=== PATIENT | male | born 1985 | race Caucasian/White ===

== ENCOUNTER 2023-06-30 17:59 | Emergency (ER) | payer OTHER, SELFPAY ==
[2023-06-30] VITALS (9 sets, daily range): BP systolic 114–136; BP diastolic 76–99; PULSE 61–71; RESP 18; TEMP 36.8; O2SAT 94–97; BMI 31.8
--- NOTE | 2023-06-30 18:19 | ED_ITS ---
HPI - General Adult General Time Seen by Provider: 18:19 Date Seen: 06/30/23 Chief complaint: Chest Pain Stated complaint: tingling left arm, chest pain, pain through neck Time Seen by Provider: 06/30/23 18:18 Source: patient and RN notes reviewed Mode of arrival: ambulatory Limitations: no limitations History of Present Illness HPI narrative: This 37-year-old male is coming in with left chest pain, pain radiating into his left arm and left back of his neck after sneezing today. He had a forceful sneeze earlier this afternoon and the symptoms developed. He does note that there is a pleuritic component with left chest symptoms. He had a cold last weekend, is at the tail end of it. He states his children were more ill. The daycare provider tested positive for strep, he is not aware of anyone else testing for anything else. His family did not test for anything. His kids ran some fevers, he never did. He has no prior cardiac or respiratory issues. He states he maybe feels a little short of breath with this. No numbness tingling in his arm, is able to use his arm. Also feels a stiffness in the left back of his neck. No headache. He has had no fevers or chills throughout this illness. He did try Tylenol about 4:00 p.m.. Related Data Home Medications Medication Instructions Recorded Confirmed No Known Home Medications 06/30/23 06/30/23 Allergies Allergy/AdvReac Type Severity Reaction Status Date / Time No Known Drug Allergies Allergy Verified 06/30/23 18:15 Review of Systems Status of ROS: Reports: 6 or more systems reviewed and unremarkable except as noted in History and below [facility] Social History Smoking Status: Never smoker Do you use any of these nicotine containing products: None Second hand tobacco smoke exposure: No How often do you have a drink containing alcohol: monthly or less How many standard drinks containing alcohol do you have on a typical day: 1 or 2 How often do you have six or more drinks on one occasion: Never AUDIT-C Alcohol total score: 1 Non-prescribed substance use: denies use service: No Exam Const: Vital Signs, click to edit/add: Vital Signs - 24 hr 06/30/23 18:12 06/30/23 18:30 06/30/23 18:31 Temperature 98.3 F Pulse Rate 69 66 Pulse Rate [Pulse Oximeter] 71 Respiratory Rate 18 Blood Pressure 131/99 H Blood Pressure [Ri ght Upper Arm] 136/94 H Pulse Oximetry 97 96 94 Oxygen Delivery Me thod Room Air 06/30/23 18:32 06/30/23 18:55 06/30/23 19:00 Temperature Pulse Rate 67 69 Pulse Rate [Pulse Oximeter] Respiratory Rate Blood Pressure 118/86 Blood Pressure [Ri ght Upper Arm] Pulse Oximetry 94 96 94 Oxygen Delivery Me thod A 37-year-old male that is very healthy appearing is resting in the bed, alert, interactive, no apparent distress. Able speak in complete sentences. Pupils are equal round, sclera clear, conjugate gaze. Symmetrical facial function. Neck supple, no adenopathy. Lungs are clear, good air entry, no wheeze or crackles. CV regular rate and rhythm, no murmur, normal S1-S2, no S3-S4. No reproducible chest wall pain. Abdomen is soft, no rebound or guarding, no organomegaly, nontender. He has 5/5 symmetrical strength. I can mobilize his left upper extremity, I cannot reproduce his pain, he states it really just feels deeper like an ache. Range of motion through the shoulder does maybe may can feel little more discomfort in his left chest wall. Documenting provider has reviewed patient's vital signs: yes Course Course ED Course: Reviewed with him that his EKG looks reassuring. Will have him on cardiac monitoring and pulse oximetry. Will get full complement of labs. He may be correct that this certainly could be muscular in nature. Will rule out such entities as pneumothorax, underlying cardiac complications including myocarditis, ischemic disease. His EKG is not showing any evidence of active ischemia or STEMI. Will get a troponin. Will also get a D-dimer considering other vascular entities. He currently is hemodynamically stable. Reevaluation(s) Time of Reevaluation #1: 19:38 Reevaluation #1: Ryan is had no arrhythmia, no hypoxia. Reviewed his chest x-ray showing no acute pathology, certainly no pneumothorax. His white blood count is normal, D- dimer is normal, comprehensive metabolic panel normal, lactate is normal. C- reactive protein just mildly up at 1.4 but he recently had a cold, triple viral swab is negative. His sneezing happened around 2:00 p.m.. His point of care troponin was normal at about 6:30 p.m., well after 3 hours of the onset of his symptoms. Thus, single troponin should be sufficient. He does note that he had a little mild headache before coming in but did not have a headache when he got here. His neck pain has resolved, left arm is feeling better. Still has some mild pleuritic type chest symptoms. Did discuss with him the possibility dissection, did discuss CTA. If it is doubtful that this is has any suggestion of pulmonary embolus with normal D-dimer, no hypoxia. He is also not tachycardic. Patient declined any neuro imaging with CTA to rule out dissection. I certainly do support that this very well may be musculoskeletal but do advise him that if he has increasing neck pain or headache, he needs to reconsider the neuro imaging. At this time, we did review trying a dose of IV Toradol 15 mg to see if it helps with the symptoms. Likely to discharge to home for further outpatient monitoring after the Toradol. Vital Signs Vital signs: Initial Vital Signs Temperature 98.3 F 06/30/23 18:12 Temperature Source Temporal Artery Scan 06/30/23 18:12 Pulse Rate 71 06/30/23 18:12 Pulse Rhythm Regular 06/30/23 18:12 Pulse Strength 3+ Normal 06/30/23 18:12 Respiratory Rate 18 06/30/23 18:12 Blood Pressure 136/94 H 06/30/23 18:12 Blood Pressure Mean 108 H 06/30/23 18:12 Blood Pressure Position Sitting 06/30/23 18:12 Pulse Oximetry 97 06/30/23 18:12 Oxygen Delivery Method Room Air 06/30/23 18:12 Vital Signs Temperature 98.3 F 06/30/23 18:12 Pulse Rate 71 06/30/23 18:12 Respiratory Rate 18 06/30/23 18:12 Blood Pressure 136/94 H 06/30/23 18:12 Pulse Oximetry 97 06/30/23 18:12 Oxygen Delivery Method Room Air 06/30/23 18:12 Temperature 98.3 F 06/30/23 18:12 Pulse Rate 69 06/30/23 19:00 Respiratory Rate 18 06/30/23 18:12 Blood Pressure 118/86 06/30/23 18:32 Pulse Oximetry 94 06/30/23 19:00 Oxygen Delivery Method Room Air 06/30/23 18:12 Medical Decision Making Lab Data Lab results reviewed: Yes I reviewed the patient's lab results Labs: Lab Results 06/30/23 06/30/23 Range/Units 18:28 18:42 WBC 5.60 (4.50-11.00) K/uL RBC 4.61 (4.30-5.90) m/uL Hgb 13.3 L (13.5-17.5) gm/dL Hct 40.6 (37.0-53.0) % MCV 88 (80-100) fL MCH 29 (26-34) pg MCHC 33 (32-36) gm/dL RDW Coeff of Smita 12.1 (11.5-15.5) % Plt Count 172 (140-440) K/uL Neut % (Auto) 60.6 (42.0-72.0) % Lymph % (Auto) 29.1 (20-44) % Butts % (Auto) 7.1 (0.0-11.0) % Eos % (Auto) 2.5 (0.0-7.0) % Baso % (Auto) 0.5 (0.0-3.0) % Neut # (Auto) 3.39 (1.7-7.0) K/uL Lymph # (Auto) 1.63 (0.90-2.90) K/uL Butts # (Auto) 0.40 (0.00-0.90) K/UL Eos # (Auto) 0.14 (0.00-0.50) K/uL Baso # (Auto) 0.03 (0.00-0.30) K/uL Abs Immat Gran (auto) 0.01 (0.00-0.30) K/uL Imm/Tot Granulo (auto) 0.2 % Diff Slide Review Acceptable Review (Acceptable) D-Dimer Quant (PE/DVT) 0.35 (0.00-0.50) ug/ml Sodium 141 (135-149) mmol/L Potassium 4.0 (3.6-5.1) mmol/L Chloride 108 (96-114) mmol/L Carbon Dioxide 26 (20-32) mmol/L Anion Gap 7 (7-15) mEq/L BUN 14 (5-24) mg/dL Creatinine 0.9 (0.5-1.5) mg/dL Estimated Creat Clear 119.69 Estimated GFR 113 ml/min Glucose 104 (60-115) mg/dL Calcium 8.8 (8.4-10.6) mg/dL Total Bilirubin 0.4 (0.1-1.5) mg/dL AST 30 (12-35) U/L ALT 28 (4-50) U/L Alkaline Phosphatase 99 (40-150) U/L C-Reactive Protein 1.4 H (0.5-1.0) mg/dL NT-Pro-B Natriuret Pep 50 pg/mL Total Protein 7.3 (6.0-8.3) g/dL Albumin 4.0 (3.3-5.0) g/dL SARS-CoV-2 (PCR) Negative SARS-CoV-2 (Negative) Influenza Type A (PCR) Negative PCR FLU A (Negative) Influenza Type B (PCR) Negative PCR FLU B (Negative) RSV (PCR) Negative PCR RSV (Negative) POC Troponin I 0.01 (0.01-0.04) ng/ml Imaging Data Chest x-ray: Attestation: I have reviewed the pertinent imaging results. Radiologist's impression: Patient: RYAN MARC Facility:?[facility] Patient ID:?[id number] Site Patient ID:?[id number]. Site :?[id number] Study:?XRay-Chest PCXR-06/30/2023 6:45:27 PM Ordering Physician:PRAVIN Final Report: INDICATION: Left chest pain after sneezing. TECHNIQUE: Chest 1 view. COMPARISON: None. FINDINGS: Mild elevation of the left hemidiaphragm with slight linear atelectasis in the left lung base. No focal consolidation, pleural effusion, or pneumothorax. Normal heart size and pulmonary vascularity. The bones are unremarkable. IMPRESSION: No acute cardiopulmonary findings. Dictated by Cristy Valadez MD @ 06/30/2023 6:56:27 PM (Electronic Signature) ECG Data Attestation: I personally reviewed and interpreted this ECG as follows: (Normal sinus rhythm, 76 beats per minute. QT corrected 418 milliseconds. No ischemia, no infarct.) Prior ECG tracings: not available for review Critical Care Time Critical Care Time Critical Care Time: No Discharge Plan Discharge Clinical Impression: Atypical chest pain Patient Disposition: Home, Self-Care Condition: Stable Instructions: Noncardiac Chest Pain (ED) Additional Instructions: Certainly can use Tylenol and ibuprofen as needed for pain management, follow bottle directions for dosing. Your EKG and troponin do rule out acute myoc ardial infarction, no evidence of any pneumothorax on your chest imaging. Continue to monitor your symptoms. If you do develop fever, increasing cough, worsening shortness of breath, increasing pain despite Tylenol and ibuprofen, have further concerns, do recommend re-evaluation. Activity Level: Activity as Tolerated Prescriptions: No Action No Known Home Medications Follow Up/Referrals: Alejandro Luna MD [Staff Physician] - Stand Alone Forms: [employer] Instructions
--- NOTE | 2023-06-30 18:27 | XR_ITS ---
Patient: RYAN MARC Facility:?[facility] Patient ID:?[id number] Site Patient ID:?[id number]. Site :?1985 Study:?XRay-Chest PCXR-06/30/2023 6:45:27 PM Ordering Physician:PRAVIN Final Report: INDICATION: Left chest pain after sneezing. TECHNIQUE: Chest 1 view. COMPARISON: None. FINDINGS: Mild elevation of the left hemidiaphragm with slight linear atelectasis in the left lung base. No focal consolidation, pleural effusion, or pneumothorax. Normal heart size and pulmonary vascularity. The bones are unremarkable. IMPRESSION: No acute cardiopulmonary findings. Dictated by Cristy Valadez MD @ 06/30/2023 6:56:27 PM Signed by:?Cristy Valadez MD @06/30/2023 6:56:27 PM (Electronic Signature)
[2023-06-30 18:57] LABS: Basophils Absolute Auto 0.03 K/uL (0.00-0.30); Basophils Percent Auto 0.5 % (0.0-3.0); Eosinophils Absolute Auto 0.14 K/uL (0.00-0.50); Eosinophils Percent Auto 2.5 % (0.0-7.0); Hematocrit 40.6 % (37.0-53.0); Hemoglobin* 13.3 gm/dL (13.5-17.5); Immature Granulocytes Abs Auto 0.01 K/uL (0.00-0.30); Immature Granulocytes Pct Auto 0.2 %; Lymphocytes Absolute Auto 1.63 K/uL (0.90-2.90); Lymphocytes Percent Auto 29.1 % (20-44); Mean Corpuscular HGB Conc 33 gm/dL (32-36); Mean Corpuscular Hemoglobin 29 pg (26-34); Mean Corpuscular Volume 88 fL (80-100); Monocytes Percent Auto 7.1 % (0.0-11.0); Neutrophils Absolute Auto 3.39 K/uL (1.7-7.0); Neutrophils Percent Auto 60.6 % (42.0-72.0); Platelet Count* 172 K/uL (140-440); RDW Coefficient of Variation % 12.1 % (11.5-15.5); Red Blood Count 4.61 m/uL (4.30-5.90)
[2023-06-30 19:05] LABS: Troponin, Point-of-Care* 0.01 ng/ml (0.01-0.04)
[2023-06-30 19:12] LABS: Chloride* 108 mmol/L (96-114); Sodium* 141 mmol/L (135-149)
[2023-06-30 19:16] LABS: Alanine Aminotransferase* 28 U/L (4-50); Alkaline Phosphatase* 99 U/L (40-150); Anion Gap 7 mEq/L (7-15); Aspartate Amino Transferase* 30 U/L (12-35); Bilirubin Total* 0.4 mg/dL (0.1-1.5); Blood Urea Nitrogen* 14 mg/dL (5-24); Calcium* 8.8 mg/dL (8.4-10.6); Carbon Dioxide* 26 mmol/L (20-32); Creatinine* 0.9 mg/dL (0.5-1.5); Est. Creatinine Clearance* 119.69; Estimated Glomerular Filt Rate 113 ml/min; Glucose* 104 mg/dL (60-115); Total Protein* 7.3 g/dL (6.0-8.3)
[2023-06-30 19:19] LABS: C Reactive Protein* 1.4 mg/dL (0.5-1.0)
[2023-06-30 19:20] LABS: D Dimer Quantitative* 0.35 ug/ml (0.00-0.50)
[2023-06-30 19:26] LABS: NT Pro B Type NatriureticPept* 50 pg/mL
[2023-06-30 19:27] LABS: Slide Review Reflex Yes
[2023-06-30 19:28] LABS: Slide Review Acceptable Review (Acceptable)
[2023-06-30 19:34] LABS: PCR FLU A Negative PCR FLU A (Negative); PCR FLU B Negative PCR FLU B (Negative); PCR RSV Negative PCR RSV (Negative); SARS PCR* Negative SARS-CoV-2 (Negative)
== END 2023-06-30 19:51 | disposition home or self-care (01) ==
PROVIDERS: Emergency Provider Family Medicine
DX: R07.89 Other chest pain (principal)
CPT/HCPCS: 36415; 71045; 80053; 83880; 84484; 85025; 85379; 86140; 87631; 93005; 94761; 99284